=== PATIENT | female | born 2000 | race Caucasian/White ===

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

== ENCOUNTER 2020-05-15 00:38 | Emergency (ER) | payer BC, MEDICAID, SELFPAY ==
[2020-05-15 00:45] VITALS: BP 129/82; PULSE 110; RESP 18; TEMP 36.5; O2SAT 98
[2020-05-15] MEDS: LORazepam 1 MG TAB PO ×2 (01:00→01:37)
--- NOTE | 2020-05-15 01:00 | ED.GENADUL_ITS ---
Discharge Plan Disposition Patient Disposition: HOME Condition: Stable Discharge Details Clinical Impression: Lump in neck, Anxiety Primary Care Provider: Chris Howard ED Provider: Toney Benz Home Meds and New Rx's Prescriptions: New lorazepam [Ativan] 1 mg tablet 1 mg PO DAILY PRN (Reason: anxiety) Qty: 10 RF: 0 Continued ProAir HFA 90 mcg/actuation HFA aerosol inhaler 2 puff IH Q6H PRNRF: 0 Nexplanon 68 mg implant 1 implant SBD ONCE Qty: 1 RF: 0 Discharge Instructions Additional Instructions: you likely have an enlarged lymph node and also had a panic attack if the lump doesn't resolve within a week follow up with your primary care provider if you feel more ill, have significant increase in size of the lump, difficulty breathing or swallowing liquids or severe worsening pain return to the emergency department Medical Decision Making 20 yo female who comes in after she felt a lump on the left neck and started to look online and got worried about diagnoses such as leukemia, started to get anxious and felt a panic attack so came here. She states on Tuesday she started with a mild posterior headache and does have history of frequent headaches and migraines. Denies vomit, fevers, and pain is not the worst of her life and not thunderclap in etiology. She got her covid vaccine this past and tonight was feeling her left neck when when she noticed the lump on her neck. She arrives speaking fast and appears to be having a panic attack, hyperventilating initially. She has no focal motor or sensation deficits, CN II- XII are intact and clear speech though is fast speaking. She has a dime size lump on left lower neck in anterior cervical lymph node chain and is not tender, warm or fluctuant and is mobile. No night sweats or unexplained weight loss. suspect she has a tension headche, no findings to suggest entities such as spinner tender infection, sah, sdh, cavernous sinus thrombosis or cerebral venous thrombosis. I suspect the lump is an enlarged lymph node which could be reactive from the v accine. There is no indication of abscess and is mobile so doubt cancerous lesion at this time. I will give her ativan for her panic attack and reassess. pt feels less anxious and headache now gone after ativan. Suspect most of her symptoms are anxiety driven. Advised to f/u with pcp within a week especially if the likely enlarged lymph node doesn't resolve and return precautions given Differential Diagnosis Differential Diagnosis: reactive lymphadenitis, anxiety, mass HPI General Mode of arrival: ambulatory . Date/Time Provider Initiated Documentation: 05/15/20 00:40 . Limitations to Documentation: no limitations . Information obtained by: patient . History of Present Illness 20 year old F presents to the emergency department with the chief complaint of lump left neck, described as mild, Patient started experiencing this hour(s) (2) and it has been constant. No relieving factors improve symptom(s), No exacerbating factors reported . Patient did receive the following treatments prior to arrival, none Related Data Home Medications Medication Instructions Recorded Confirmed albuterol sulfate 90 mcg/actuation 2 puff IH Q6H PRN 06/08/18 06/08/18 aerosol inhaler etonogestrel 68 mg subdermal 1 implant SBD ONCE #1 each 06/08/18 06/08/18 implant lorazepam [Ativan] 1 mg PO DAILY PRN #10 tab 05/15/20 Previous Rx's Medication Instructions Recorded etonogestrel 68 mg subdermal 1 implant SBD ONCE #1 each 06/08/18 implant lorazepam [Ativan] 1 mg PO DAILY PRN #10 tab 05/15/20 Allergies Allergy/AdvReac Type Severity Reaction Status Date / Time No Known Allergies Allergy Verified 06/08/18 09:12 General FELICIA: 2 Review of Systems All systems reviewed & are unremarkable except as noted in HPI and below Constitutional Constitutional: Denies chills and Denies fever(s) Cardiovascular Cardiovascular: Denies chest pain and Denies dyspnea Respiratory Respiratory: Denies cough and Denies dyspnea Gastrointestinal Gastrointestinal: Denies abdominal pain, Denies nausea and Denies vomiting Musculoskeletal Musculoskeletal: Denies joint swelling PFSH Medical History Migraine Presence of subdermal contraceptive implant Family History Father Rheumatoid arthritis Social History Smoking/Tobacco Use Status: Former Tobacco Use Smoking risk assessment performed?: Yes Alcohol Intake: current Alcohol Intake frequency: a few times a month Drug use: Never Substance use type: does not use Do you feel safe at home: Yes Do you feel safe in your relationship?: Yes Female Reproductive History Menstrual Duration of menses: 3-5 days control method: implanted (Nexplanon inserted by Reina Benz NP IPM=[id number] EXP=08/2020) History History 0 Para Hx # Term Pregnancies Multiple births Hx # Pregnancies Ectopic pregnancies AB induced Hx Number of Living Children AB spontaneous Exam Const General: anxious Orientation: alert HENMT Head: normal to inspection Ears: external ears normal General nose exam: external nose normal Mouth: moist mucous membranes Eyes General: appearance normal, both eyes and all related structures Neck Neck: normal visual inspection Resp Effort & Inspection: normal respiratory effort and able to speak in complete sentences Cardio Rate: regular rate Skin General skin exam: no rashes or lesions noted Neuro General: patient alert and patient oriented x3 Extrem General: normal to inspection Psych Mental Status: mental status grossly normal
== END 2020-05-15 01:40 | disposition home or self-care (01) ==
PROVIDERS: Emergency Provider Emergency Medicine; PCP Family Medicine
DX: F41.0 Panic disorder [episodic paroxysmal anxiety] (principal); R22.1 Localized swelling, mass and lump, neck
CPT/HCPCS: 99283

== ENCOUNTER 2020-06-07 20:09 | Emergency (ER) | payer BC, MEDICAID, SELFPAY ==
[2020-06-07 20:19] VITALS: BP 109/56; PULSE 73; RESP 18; TEMP 36.6; O2SAT 98
--- NOTE | 2020-06-07 20:30 | DI.RAD_ITS ---
EXAM: XR ELBOW LT COMPLETE CLINICAL HISTORY: fall snowboarding. TECHNIQUE: 2D digital imaging was performed. COMPARISON: No exams were available for comparison FINDINGS: There is no evidence of obvious acute fracture nor dislocation. Slight elevation of the anterior fat pad. No swelling of the olecranon bursa. Bone density normal. No osseous lesions. Incidentally n oted is a implant within the soft tissues of the upper arm, this remote from the elbow. IMPRESSION: DATA REPOSITORY: RADIATION DOSE DELIVERED:
--- NOTE | 2020-06-07 20:56 | ED.GENADUL_ITS ---
Discharge Plan Disposition Patient Disposition: HOME Condition: Stable Discharge Details Clinical Impression: Elbow pain Primary Care Provider: Chris Howard ED Provider: Luis Fonseca Home Meds and New Rx's Prescriptions: Continued ProAir HFA 90 mcg/actuation HFA aerosol inhaler 2 puff IH Q6H PRNRF: 0 Nexplanon 68 mg implant 1 implant SBD ONCE Qty: 1 RF: 0 citalopram 10 mg tablet 10 mg PO DAILY RF: 0 Discharge Instructions Instructions: Elbow Sprain (ED) Additional Instructions: X-ray of the elbow was unremarkable. Wear sling as needed, advance activity as tolerated, be sure to do passive range of motion to avoid a frozen shoulder. Cool compresses every 2 hours for 20 days. [id number] Tylenol and/or Motrin as directed for discomfort. Please watch for new or worsening symptoms and return to the ER for any concerns. I am giving you the name and number of our local orthopedic provider, please contact his office in 3 to 5 days if you are not improving with conservative care. Referrals: Lamin Hernandez MD [ [facility] STAFF PHYSICIAN] - Medical Decision Making 20-year-old [id number] female presents for left elbow injury that she sustained just prior to arrival. Clinically she reports moderate pain at rest, severe with movement. Denies numbness, tingling, weakness. No other injury. Appears to be likely soft tissue in nature but I do feel as though obtaining x- ray to rule out bony involvement is reasonable. X-ray read by radiology as negative. Discussed x-ray findings with patient, discussed disposition. Patient will be placed into a sling, discussed the importance of passive range of motion of her shoulder to avoid frozen shoulder. We will give her first dose of Motrin now. [id number] Tylenol and/or Motrin as directed for discomfort. Cool compresses every 2 hours for 20 days. We will provide her with the name and number of our orthopedic team, she is to contact them in 3 to 5 days if she is not improving with conservative therapy Medical Records Medical records reviewed: Yes I reviewed the patient's medical records. HPI General Mode of arrival: ambulatory . Date/Time Provider Initiated Documentation: 06/07/20 20:11 . Limitations to Documentation: no limitations . Information obtained by: patient . HPI Narrative: This is a 20-year-old female, [id number], presenting for a left elbow injury that she sustained when snowboarding at low speed just prior to arrival. She states that she placed her hand out in front of her to brace the fall and feels as though she twisted or hyperextended. She denies any other injury. Reports the pain is moderate at rest, worse with movement. She denies striking her head. She was wearing a helmet. Denies shoulder pain, wrist pain, hand pain. Denies numbness, tingling, weakness. She has not taken any medication for her symptoms. Related Data Home Medications Medication Instructions Recorded Confirmed albuterol sulfate 90 mcg/actuation 2 puff IH Q6H PRN 06/08/18 06/07/20 aerosol inhaler etonogestrel 68 mg subdermal 1 implant SBD ONCE #1 each 06/08/18 06/07/20 implant citalopram 10 mg PO DAILY 06/07/20 06/07/20 Previous Rx's Medication Instructions Recorded etonogestrel 68 mg subdermal 1 implant SBD ONCE #1 each 06/08/18 implant Allergies Allergy/AdvReac Type Severity Reaction Status Date / Time No Known Allergies Allergy Verified 06/07/20 20:24 General Stated Complaint: Orthopedic FELICIA: 3 Review of Systems Constitutional Constitutional: Denies weakness Gastrointestinal Gastrointestinal: Denies nausea and Denies vomiting Musculoskeletal Musculoskeletal: Denies deformity, Reports arthralgias, Denies numbness and Denies tingling Neurologic Neurologic: Denies numbness, Denies tingling and Denies weakness PFSH Medical History Migraine Presence of subdermal contraceptive implant Family History Father Rheumatoid arthritis Social History Smoking/Tobacco Use Status: Former Tobacco Use Smoking risk assessment performed?: Yes Alcohol Intake: current Alcohol Intake frequency: a few times a month Drug use: Never Substance use type: does not use Do you feel safe at home: Yes Do you feel safe in your relationship?: Yes Female Reproductive History Menstrual Duration of menses: 3-5 days control method: implanted (Nexplanon inserted by Reina Benz NP PDF=[id number] EXP=08/2020) History History 0 Para Hx # Term Pregnancies Multiple births Hx # Pregnancies Ectopic pregnancies AB induced Hx Number of Living Children AB spontaneous Exam Const General: cooperative, healthy appearing, comfortable and no acute distress Orientation: alert and awake HENWV Head: normal to inspection, normocephalic and atraumatic Eyes Conjunctivae: conjunctivae normal Sclera: sclerae normal Neck Neck: normal visual inspection, full ROM, trachea midline and supple Resp Effort & Inspection: normal respiratory effort and able to speak in complete sentences Cardio Rate: regular rate Rhythm: regular rhythm Skin General skin exam: no rashes or lesions noted Neuro General: patient alert, patient awake, moves all extremities and no focal motor deficits Cognition: normal cognition Speech: speech normal Gait: normal gait Motor: muscle tone normal throughout Sensory Exam: no sensory deficits noted Extrem Left upper extremity: normal to inspection, normal capillary refill, shoulder/upper arm Details: inspection abnormal, axillary nerve sensory function normal and normal ROM; no tenderness, elbow/forearm Details: normal to inspection, tenderness (Diffuse over her entire elbow, no bony point tenderness), abnormal ROM (Patient unable to fully extend for flex secondary to pain) and distal pulses intact; no ecchymosis and no crepitus, wrist Details: normal to inspection, normal ROM and normal vascular exam; no tenderness and no swelling and hand Details: normal to inspection, normal capillary refill, neuromotor exam normal, neurosensory exam normal and tendon exam normal Psych Appearance: grossly normal Mental Status: mental status grossly normal Course Vital Signs Vital signs: Vital Signs Temperature 36.6 C 06/07/20 20:19 Pulse 73 06/07/20 20:19 Respiratory Rate 18 06/07/20 20:19 Blood Pressure 109/56 L 06/07/20 20:19 Pulse Oximetry 98 06/07/20 20:19 Temperature 36.6 C 06/07/20 20:19 Temperature Source Temporal Artery Scan 06/07/20 20:19 Pulse 73 06/07/20 20:19 Respiratory Rate 18 06/07/20 20:19 Respiratory Effort Non-Labored 06/07/20 20:28 Blood Pressure 109/56 L 06/07/20 20:19 Blood Pressure Position Sitting 06/07/20 20:19 Pulse Oximetry 98 06/07/20 20:19 Oxygen Delivery Method Room Air 06/07/20 20:19 Oxygen Flow Rate 0 06/07/20 20:19 Pain Level 7 06/07/20 20:28
--- NOTE | 2020-06-07 21:00 | DI.VRAD_ITS ---
PROCEDURE INFORMATION: Exam: XR Left Elbow Exam date and time: 06/07/2020 8:31 PM Age: 20 years old Clinical indication: Pain; Elbow; Left; Patient HX: Fall snowboarding TECHNIQUE: Imaging protocol: XR Left elbow. Views: 3 or more views. COMPARISON: No relevant prior studies available. FINDINGS: Bones/joints: No displaced fractures or dislocations identified. Soft tissues: Possible implant within upper arm, otherwise, unremarkable. IMPRESSION: No acute findings. Dictated and Authenticated by: Clay Williamson MD. Ordering:TAMMI Smith MD
[2020-06-07] MEDS: Ibuprofen 800 MG TAB PO (21:30)
[2020-06-07 21:31] VITALS: PULSE 87; RESP 14; O2SAT 97
== END 2020-06-07 21:35 | disposition home or self-care (01) ==
PROVIDERS: Emergency Provider Physician Assistant; PCP Family Medicine
DX: M25.522 Pain in left elbow (principal); V00.311A Fall from snowboard, initial encounter; Y93.23 Activity, snow (alpine) (downhill) skiing, snowboarding, sledding, tobogganing and snow tubing
CPT/HCPCS: 99284; 73080; 99283

== ENCOUNTER 2020-06-18 12:23 | Outpatient (CLI) | payer BC, MEDICAID, SELFPAY ==
--- NOTE | 2020-06-18 14:30 | DI.MRI_ITS ---
EXAM: MR UPPER JOINT LT WO CLINICAL HISTORY: TENDON RUPTURE ABOVE BELOW JOINT,traumatic pain, m25.529 TECHNIQUE: Multiplanar multisequence MRI of the left elbow. COMPARISON: Plain films 06/07/2020 reviewed FINDINGS: Quality of this study is suboptimal as patient was not able to assume the standard position for this study. Also mild motion artifact. MARROW:There is intraosseous edema in the lateral aspect of the radial head and radial radial as well as in the adjacent capitellum. Also bone edema in the posterior aspect of the olecranon fossa. Als o bone edema in the lateral distal humeral epiphysis. Articulations/ligaments: There is a small elbow joint effusion. There appears to be a tear of the an nular ligament. Ulnar medial collateral ligament: Appears intact Radial collateral ligament: Abnormal signal. Probable tear Tendons/soft tissues: Biceps tendon: Intact Brachialis tendon: Intact Triceps tendon: Intraosseous edema in the posterior olecranon insertion region. However, the triceps tendon itself appears intact. Common flexor tendon: No obvious tear Common extensor tendon: No obvious tear There is some intramuscular edema anterior to the elbow joint. Also subcutaneous edema around the el bow extending into the dorsal forearm IMPRESSION: 1. There appears to be a tear of the annular ligament and there is bone contusion evident in the radi al head and neck and capitellum. 2. Also bone edema in the posterior olecranon but without evidence of triceps tendon tear nor swellin g in the olecranon bursa. 3. Edema signal in the region of the radial collateral ligament suspicious for tearing. The ulnar-me dial collateral ligament appears intact. 4. Small elbow joint effusion noted. Also intramuscular edema as well as subcutaneous edema which e xtends down the posterior dorsal aspect of the forearm. DATA REPOSITORY:
--- NOTE | 2020-06-18 20:54 | DI.VRAD_ITS ---
PROCEDURE INFORMATION: Exam: MR Left Upper Extremity Joint Without Contrast; Elbow Exam date and time: 06/18/2020 3:02 PM Age: 20 years old Clinical indication: Injury or trauma; Fall; Blunt trauma (contusions or hematomas); Elbow; Left TECHNIQUE: Imaging protocol: MR of the Left upper extremity without contrast. Exam focused on the elbow. COMPARISON: CR XR ELBOW LT COMPLETE 06/07/2020 8:42 PM FINDINGS: Limitations: Motion artifact does moderately limit the sensitivity of this examination. Bones and cartilage: There is bone marrow edema in the lateral aspect of the radial head, within the neck of the radius and at the posterior aspect of the olecranon. There is mild edema also noted at the lateral aspect of the distal humeral epiphysis. Joint spaces: There is a small elbow joint effusion. Ulnar (medial) collateral ligament: Unremarkable. No tear. Radial collateral ligament of the elbow: There is edema in the region of the radial collateral ligament and the ligament not well seen, which could represent a mild tear. Annular ligament of the radius: There is suspicion for a tear of the annular ligament due to a wavy appearance and apparent discontinuity (image 41, series 7001). Tendon of the biceps brachii: Grossly intact. No significant tear. Tendon of the Brachialis: Unremarkable. No tear. Triceps tendon: No tear, however there is edema within the olecranon at the triceps tendon insertion. Common flexor tendon: No gross tear, although there is marrow edema at its insertion on the lateral humerus. Common extensor tendon: Unremarkable. No tear. Muscles: Muscle edema is noted anterior to the elbow joint. Soft tissues: Subcutaneous edema is noted surrounding the elbow, predominantly in the forearm. IMPRESSION: 1. Likely tear of the annular ligament of the radius as described. 2. Edema in the region of the radial collateral ligament is also suspicious for mild tear. 3. Bone marrow within the radius, olecranon and humerus are suggestive of bone bruising in the setting of recent injury. 4. Small elbow joint effusion and edema within the anterior musculature and subcutaneous tissues. Dictated and Authenticated by: Stelal Byrne MD. Ordering:EUGENE Damon MD
== END 2020-06-18 12:24 ==
LOC: DI 06-20 12:26
PROVIDERS: PCP Family Medicine; Visit Provider Student in an Organized Health Care Education/Training Program
DX: M25.522 Pain in left elbow (principal); M25.422 Effusion, left elbow; S50.02XA Contusion of left elbow, initial encounter
CPT/HCPCS: 73221

== ENCOUNTER → 2023-01-26 02:21 | Outpatient (CLI) | payer MEDICAID, SELFPAY ==
--- NOTE | 2023-01-26 | DI.US_ITS ---
Exam(s) US SOFT TISSUE HEAD OR NECK EXAM: US SOFT TISSUE HEAD OR NECK CLINICAL HISTORY: NECK MASS, R22.1. TECHNIQUE: Ultrasound was performed using standard protocol. COMPARISON: No exams were available for comparison FINDINGS: Images submitted for interpretation reveal multiple prominent lymph nodes in the left side of the nec k in the area of clinical concern. Largest of these lymph nodes measures 14 x 7 mm. There is no abnormal fluid collection. IMPRESSION: Multiple enlarged lymph nodes evident in the left side of the neck. DATA REPOSITORY:
== END ==
PROVIDERS: PCP Family Medicine; Visit Provider Family Medicine
DX: R59.9 Enlarged lymph nodes, unspecified (principal)
CPT/HCPCS: 76536